=== PATIENT | male | born 1960 | race Hispanic/Latino ===

== ENCOUNTER → 2022-05-25 | Outpatient (CLI) | payer OTHER ==
[~2022-05-25] VITALS: Ht 162.6 cm; Wt 103.1 kg
[2022-05-25 12:15] VITALS: BP 142/67
[2022-05-25 12:27] LABS: BASOPHILS % (AUTO) 0.4 % (0.0-5.0); EOSINOPHILS % (AUTO) 2.5 % (0.0-8.0); HEMATOCRIT 43.2 % (42-54); LYMPHOCYTES % (AUTO) 26.7 % (21.0-51.0); MEAN CORPUSCULAR HEMOGLOBIN 30.6 pg (27.0-33.0); MEAN CORPUSCULAR HGB CONC 33.8 g/dL (32.0-36.0); MEAN CORPUSCULAR VOLUME 90.6 fL (79-99); MONOCYTES % (AUTO) 7.3 % (3.0-13.0); NEUTROPHILS % (AUTO) 62.6 % (40.0-77.0); PLATELET COUNT (AUTO) 220 K/uL (130-400); RED BLOOD CELL COUNT(AUTO) 4.77 MIL/uL (4.50-6.20); RED CELL DISTRIBUTION WIDTH 12.6 % (11.0-15.5); WHITE BLOOD COUNT (AUTO) 5.6 K/uL (4.8-10.8)
[2022-05-25 12:33] LABS: CREATININE 0.9 mg/dL (0.5-1.5)
[2022-05-25 12:38] LABS: APPEARANCE,URINE CLEAR (CLEAR); BILIRUBIN,URINE NEGATIVE (NEGATIVE); COLOR,URINE COLORLESS (YELLOW); GLUCOSE, URINE (UA) >=1000 mg/dL (NEGATIVE); KETONES,URINE NEGATIVE (NEGATIVE); LEUKOCYTE ESTERASE ,URINE NEGATIVE Leu/uL (NEGATIVE); NITRATE,URINE NEGATIVE (NEGATIVE); OCCULT BLOOD,URINE NEGATIVE (NEGATIVE); PROTEIN,URINE NEGATIVE (NEGATIVE); UROBILINOGEN,URINE 0.2 mg/dL (0.2-1.0)
[2022-05-25 12:40] LABS: RBC,URINE 0-1 /HPF (0-1); SQUAMOUS EPITHELIAL CELL,UR RARE /HPF (0-2)
[2022-05-25 12:43] LABS: INR 1.01 (0.85-1.15)
[2022-05-25 12:44] LABS: PARTIAL THROMBOPLASTIN TIME 27.7 SEC (26.3-35.5)
[2022-05-25 12:48] LABS: B-TYPE NATRIURETIC PEPTIDE 27 pg/mL (0-100)
== END | disposition home or self-care (01) ==
LOC: DAH 10:00 → EDSTATUS 11:30
PROVIDERS: ATTEND Internal Medicine Cardiovascular Disease
DX: I25.119 Atherosclerotic heart disease of native coronary artery with unspecified angina pectoris (principal); I10 Essential (primary) hypertension; I25.2 Old myocardial infarction; Z79.01 Long term (current) use of anticoagulants; Z53.8 Procedure and treatment not carried out for other reasons
CPT/HCPCS: 36415; 71045; 80048; 81001; 83880; 85025; 85610; 85730; 93005

== ENCOUNTER 2022-06-30 08:49 | Day surgery (SDC) | payer OTHER ==
[2022-06-28 13:31] LABS: BASOPHILS % (AUTO) 0.4 % (0.0-5.0); EOSINOPHILS % (AUTO) 1.8 % (0.0-8.0); HEMATOCRIT 43.4 % (42-54); LYMPHOCYTES % (AUTO) 28.2 % (21.0-51.0); MEAN CORPUSCULAR HEMOGLOBIN 29.9 pg (27.0-33.0); MEAN CORPUSCULAR HGB CONC 32.9 g/dL (32.0-36.0); MEAN CORPUSCULAR VOLUME 90.8 fL (79-99); MONOCYTES % (AUTO) 8.6 % (3.0-13.0); NEUTROPHILS % (AUTO) 60.6 % (40.0-77.0); PLATELET COUNT (AUTO) 225 K/uL (130-400); RED BLOOD CELL COUNT(AUTO) 4.78 MIL/uL (4.50-6.20); RED CELL DISTRIBUTION WIDTH 12.8 % (11.0-15.5); WHITE BLOOD COUNT (AUTO) 5.7 K/uL (4.8-10.8)
[2022-06-28 13:37] LABS: CREATININE 1.1 mg/dL (0.5-1.5); POTASSIUM 4.2 mmol/L (3.5-5.1)
[2022-06-28 13:49] LABS: APPEARANCE,URINE CLEAR (CLEAR); BILIRUBIN,URINE NEGATIVE (NEGATIVE); COLOR,URINE LIGHT-YELLOW (YELLOW); GLUCOSE, URINE (UA) >=1000 mg/dL (NEGATIVE); KETONES,URINE NEGATIVE (NEGATIVE); LEUKOCYTE ESTERASE ,URINE NEGATIVE Leu/uL (NEGATIVE); NITRATE,URINE NEGATIVE (NEGATIVE); OCCULT BLOOD,URINE NEGATIVE (NEGATIVE); PROTEIN,URINE NEGATIVE (NEGATIVE); UROBILINOGEN,URINE 0.2 mg/dL (0.2-1.0)
[2022-06-28 13:59] LABS: PROTHROMBIN TIME 10.9 SEC (9.6-11.6)
[2022-06-28 14:00] LABS: PARTIAL THROMBOPLASTIN TIME 27.6 SEC (26.3-35.5)
[2022-06-28 14:02] LABS: RBC,URINE 0-1 /HPF (0-1)
[2022-06-28 14:17] LABS: B-TYPE NATRIURETIC PEPTIDE 25 pg/mL (0-100)
[2022-06-28 14:22] VITALS: BP 137/68
[~2022-06-30] VITALS: Ht 170.2 cm; Wt 100.4 kg
[~2022-06-30 08:49] MED LIST: ATOR20TA65 PO; CARV3.12 PO; CLOP75TA32 PO; EMPA1TAB7 PO; FAMO20TA8 PO; FLUO10TA35 PO; FURO20TA4 PO; INSLAN SQ; INSU100I15 SQ; LISI5TAB21 PO; PIOG15TA66 PO
[2022-06-30 09:20] VITALS: BP 143/67
[2022-06-30] MEDS ORDERED: 0.9%NACL 1000ML 1,000 ML IV ONE (10:25)
[2022-06-30] MEDS ORDERED: IOHEXOL 350 MG/ML 100ML INFUS..BTL IV ONE (12:10)
[2022-06-30] MEDS ORDERED: LIDOCAINE HCL 400MG/20ML VIAL ONE (12:10)
[2022-06-30] MEDS ORDERED: MIDAZOLAM HCL 1 MG/ML 2ML VIAL ONE (12:10)
[2022-06-30] MEDS ORDERED: IOHEXOL-350 50ML VIAL IV ONE (12:10)
[2022-06-30] MEDS ORDERED: NITROGLYCERIN 50MG VIAL ONE (12:11)
[2022-06-30] MEDS ORDERED: FENTANYL CITRATE PF 50 MCG/1 ML 2ML VIAL ONE (12:56)
[2022-06-30] MEDS ORDERED: 0.9%NACL 1000ML 1,000 ML IV SCH (13:30)
[2022-06-30] MEDS ORDERED: GLUCAGON 1MG KIT 1 MG ML IM PRN (13:30)
[2022-06-30] MEDS ORDERED: DEXTROSE 50%-WATER 50 ML DISP.SYRIN IV PRN (13:30)
[2022-06-30] MEDS ORDERED: HYDRALAZINE 20MG/ML VIAL IV PRN (13:30)
[2022-06-30 13:50] VITALS: BP 141/73
[2022-06-30 14:05] VITALS: BP 146/81
[2022-06-30 14:20] VITALS: BP 135/76
[2022-06-30 15:20] VITALS: BP 132/72
[2022-06-30 16:20] VITALS: BP 135/81
[2022-06-30] MEDS ORDERED: INSULIN HUMULIN R 100 UNIT/ML 3ML SQ SCH (16:30)
== END 2022-06-30 16:45 | disposition home or self-care (01) ==
LOC: DAH 08:49
PROVIDERS: ATTEND Internal Medicine Cardiovascular Disease
DX: I25.119 Atherosclerotic heart disease of native coronary artery with unspecified angina pectoris (principal); I25.5 Ischemic cardiomyopathy; I25.82 Chronic total occlusion of coronary artery; I11.0 Hypertensive heart disease with heart failure; I50.32 Chronic diastolic (congestive) heart failure; E78.5 Hyperlipidemia, unspecified; E11.9 Type 2 diabetes mellitus without complications; E66.9 Obesity, unspecified; Z79.01 Long term (current) use of anticoagulants; Z79.899 Other long term (current) drug therapy; Z79.82 Long term (current) use of aspirin; Z68.38 Body mass index [BMI] 38.0-38.9, adult; Z79.4 Long term (current) use of insulin; Z82.49 Family history of ischemic heart disease and other diseases of the circulatory system; Z83.3 Family history of diabetes mellitus; Z98.890 Other specified postprocedural states; Z98.41 Cataract extraction status, right eye; Z98.42 Cataract extraction status, left eye
CPT/HCPCS: 80048; 83880; 85025; 85610; 85730; 81001; 36415; 71045; 93458; 82948 ×2; C1894 ×2; C1760; Q9965; J3010; J3490 ×2; J7030; J2250; J1644; Q9967 ×2; A4215; A4222; A4221; A4663; A4216; A4606; A4223 ×3; 99156; 99157

== ENCOUNTER → 2024-03-19 | Outpatient (CLI) | payer OTHER ==
[~2024-03-19] MED LIST changes: +IOHEXOL 350 MG/ML 100ML INFUS..BTL IV ONE; +metoPROLOL tartRATE 1 MG/ML 5ML VIAL IV ONE
--- NOTE | 2024-03-19 10:50 | HMCIMG ---
CT CARDIAC ANGIO W/CONT. CCTA REASON: ISCHEMIC CARDIOMEGALY COMPARISON: None TECHNIQUE: Images are obtained through the heart in the axial plane before and during bolus IV contrast infusion, 100 cc Omnipaque 350. 2-D and 3-D multiplanar reconstruction images were then performed. The injection had to be repeated once due to motion artifact on the first sequence, total contrast volume was 200 cc. FINDINGS: This dictation is for the noncardiac findings only. Cardiac and coronary artery findings are reported separately. Visualized portions of the lungs are clear. There is normal-appearing pulmonary interstitium. There is no hilar or mediastinal lymphadenopathy. Chest wall structures appear unremarkable. IMPRESSION: 1. Unremarkable noncardiac portions of CT cardiac angiography.
== END | disposition home or self-care (01) ==
LOC: RAH 07:27
PROVIDERS: ATTEND Internal Medicine Cardiovascular Disease
DX: I25.5 Ischemic cardiomyopathy (principal)
CPT/HCPCS: 75574; J3490; Q9967

== ENCOUNTER 2024-06-20 06:49 | Day surgery (SDC) | payer OTHER ==
--- NOTE | 2024-06-18 08:54 | EKG ---
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 : 1960 Requested By: SHARLENE TURNER Order Number: [id number] Reading MD: Gertrude Shook Measurements Intervals [place] Rate: 73 P: -2 UT: 142 QRS: -23 QRSD: 98 T: 107 QT: 404 QTc: 445 Interpretive Statements Normal sinus rhythm Septal infarct , age undetermined T wave abnormality, consider lateral ischemia Compared to ECG 07/27/2022 23:15:01 T-wave abnormality now present Sinus tachycardia no longer present Ventricular premature complex(es) no longer present Short UT interval no longer present ST (T wave) deviation no longer present Myocardial infarct finding still present Possible ischemia still present Electronically Signed On 06-19-2024 13:19:15 CDT by Gertrude Shook Please click the below link to view image of tracing.
[2024-06-18 09:07] LABS: BASOPHILS # (AUTO) 0.02 K/uL (0.00-0.20); BASOPHILS % (AUTO) 0.4 % (0.0-5.0); EOSINOPHILS # (AUTO) 0.15 K/uL (0.00-0.70); EOSINOPHILS % (AUTO) 2.7 % (0.0-8.0); HEMATOCRIT 47.2 % (42-54); IMMATURE GRANULOCYTE ABSOLUTE 0.02 K/uL (0-1); LYMPHOCYTES # (AUTO) 1.4 K/uL (1.0-4.8); LYMPHOCYTES % (AUTO) 25.2 % (21.0-51.0); MEAN CORPUSCULAR HGB CONC 34.1 g/dL (32.0-36.0); MEAN CORPUSCULAR VOLUME 88.1 fL (79-99); MONOCYTES # (AUTO) 0.4 K/uL (0.1-1.0); MONOCYTES % (AUTO) 7.4 % (3.0-13.0); NEUTROPHILS # (AUTO) 3.6 K/uL (1.8-7.7); NEUTROPHILS % (AUTO) 63.9 % (40.0-77.0); PLATELET COUNT (AUTO) 223 K/uL (130-400); RED BLOOD CELL COUNT(AUTO) 5.36 MIL/uL (4.50-6.20); RED CELL DISTRIBUTION WIDTH 12.3 % (11.0-15.5); WHITE BLOOD COUNT (AUTO) 5.6 K/uL (4.8-10.8)
[2024-06-18 09:17] LABS: INR 1.04 (0.85-1.15)
[2024-06-18 09:18] LABS: PARTIAL THROMBOPLASTIN TIME 26.3 SEC (26.3-35.5)
[2024-06-18 10:36] VITALS: BP 113/66; PULSE 78; RESP 18; TEMP 98.1
--- NOTE | 2024-06-18 11:44 | HMCIMG ---
CHEST 1VW HISTORY: Preop COMPARISON: 08/03/2022 FINDINGS: A frontal projection of the chest was obtained. No acute pulmonary infiltrates is seen. Poststernotomy changes are seen. The heart is enlarged. Degenerative changes of the thoracolumbar spine are present. No evidence of aortic calcification is seen. IMPRESSION: 1. No acute pulmonary infiltrate is seen.
[2024-06-20] VITALS (12 sets, daily range): BP systolic 113–140; BP diastolic 61–76; PULSE 78–88; RESP 11–18; TEMP 97.3–97.6
[~2024-06-20] VITALS: Ht 165.1 cm; Wt 99.3 kg
[~2024-06-20 06:49] MED LIST changes: +ASPI-1443 PO; -ATOR20TA65 PO; +ATOR40TA71 PO; -CARV3.12 PO; +DAPA1TAB5 PO; -EMPA1TAB7 PO; -FLUO10TA35 PO; -IOHEXOL 350 MG/ML 100ML INFUS..BTL IV ONE; +ISOS30TA92 PO; -LISI5TAB21 PO; +METO25 PO; -PIOG15TA66 PO; +PREG75CA76 PO; -metoPROLOL tartRATE 1 MG/ML 5ML VIAL IV ONE
[2024-06-20] MEDS ORDERED: IOHEXOL 350 MG/ML 100ML INFUS..BTL IV ONE (09:49)
[2024-06-20] MEDS ORDERED: IOHEXOL-350 50ML VIAL IV ONE (09:49)
[2024-06-20] MEDS ORDERED: LIDOCAINE HCL 1% 20 ML VIAL ONE ×2 (09:49→10:51)
[2024-06-20] MEDS ORDERED: NITROGLYCERIN 50MG VIAL ONE (09:50)
[2024-06-20] MEDS ORDERED: HEParin 10,000 UNIT/10ML (1,000 UNIT/ML) VIAL ONE (09:50)
[2024-06-20] MEDS ORDERED: HEParin-NS 1,000 UNIT/500 ML 1,000 ML IV ONE (09:50)
[2024-06-20] MEDS ORDERED: BIVALIRUDIN 250 MG/VIAL IV ONE (09:51)
[2024-06-20] MEDS ORDERED: MIDAZOLAM HCL 1 MG/ML 2ML VIAL ONE ×2 (10:08→10:42)
[2024-06-20] MEDS ORDERED: FENTanyl CITRate PF 50 MCG/1 ML 2ML VIAL ONE (10:08)
[2024-06-20] MEDS ORDERED: ATROPINE 1MG SYG IVP ONE (11:16)
[2024-06-20] MEDS ORDERED: cloPIDOgrel 300MG TAB ONE (11:23)
[2024-06-20] MEDS ORDERED: ASPIRIN 81 MG EC TAB ONE (11:23)
[2024-06-20] MEDS ORDERED: EPINEPHrine PF 1MG (1:1,000) 1 MG/ML AMP ONE (11:42)
[2024-06-20] MEDS ORDERED: HEParin-NS 1,000 UNIT/500 ML 500 ML IV ONE (11:46)
[2024-06-20] MEDS ORDERED: DOPamine HCL 400 MG/D5%-WATER 0 ML IV ONE (11:55)
--- NOTE | 2024-06-20 12:48 | PRN ---
PROCEDURES: 1. Right common femoral arterial sheath placement. 2. Selective coronary angiogram. 3. Left heart catheterization. 4. Angioplasty to mid RCA into RV marginal with the use of a 2.5 mm x 20 mm balloon to nominal pressure 5. Failed stent placement delivery to mid RCA into RV marginal branch with stent coming off delivery system remaining in proximal mid RCA 6. Angioplasty to proximal mid RCA with a 2 mm balloon and a 3 mm balloon with a attempts at reducing profile of abandoned stent INDICATION: Ischemic cardiomyopathy DESCRIPTION OF PROCEDURE: The patient was brought to the catheterization suite and prepped and draped in sterile fashion. IV was started, and not already in place and both groins were exposed for arterial access. 1% lidocaine was used for local anesthesia and then a micropuncture kit was used to gain access once free-flowing blood was seen, modified Seldinger technique was utilized to place a 6 [place] sheath into the right common femoral artery. Next, preformed JL4 and JR 4 catheters were used to selectively engage the [place] coronary vessels and multiple hand contrast injections were performed in different views to define the coronary anatomy. Next the JR4 system was then used to selectively engage 2 saphenous vein grafts as well as to direct a Glidewire into the distal subclavian and brachial artery under fluoroscopic guidance. Next an IMT catheter was then used to selectively engage the left internal mammary artery and multiple hand contrast injections were performed to define this anatomy as well. Next images were reviewed with findings as described below. FINDINGS: The left main artery bifurcates in the LAD and left circumflex and is free of disease. The left anterior descending artery in its ostial and proximal segment has a stent noted which is 100% occluded. There is a saphenous vein graft coming off the aorta which anastomosis to the mid LAD and is noted to be patent. Velarde-diagonal branch 2. Is noted to be patent. The [place] left circumflex artery is patent giving rise to obtuse marginal branch 1. Which has an 85-90% stenosis noted in its proximal segment. The right coronary artery has an area of occlusion in its distal segment and the saphenous vein graft to the RCA is occluded off the aorta. The mid RCA has sequential lesions of 75 and 85% before 100% occlusion distally. RV marginal branch in its ostial and proximal segment has 85-90% stenosis. INTERVENTIONAL REPORT: After images were reviewed it was felt attempts could be made at intervention to [place] RCA and RV marginal branch and a choice PT extra-support wire was placed in the distal RV marginal branch under fluoroscopic guidance. And a GuideLiner was used for support to deliver a 2.5 mm by 20 mm balloon to the RV marginal into the mid RCA and deployed. Next attempts were made to pass a stent into this region with GuideLiner support but was unsuccessful and as we are withdrawing stent it appeared that a portion of the proximal segment of stent attached are was snared by a eccentric presumably a calcified plaque thereby removing the under deployed stent off the delivery system remaining in the mid RCA. I then wired initially with a whisper wire and eventually delivered a 2-0 balloon to try and flattened stent and then I went in with a 3-0 balloon into the same thing. We then tried to deliver a 3.5 mm x 26 mm stent but was kicked out. And then we wired system and eventually put an iron man into the distal RCA under fluoroscopic guidance. Attempts were made once more to cross a 3 5 mm stent to crush balloon but was unsuccessful and secondary to amount of contrast and radiation exposure was felt test should be terminated. Contrast injections revealed still ABDIAS 3 flow and remaining segments. A Mynx device was used for closure of arteriotomy site. RECOMMENDATIONS: Continued medical management. Continue dual antiplatelet therapy Discharge home later today No heavy lifting 5 lb or greater for 3 days Consider repeat attempts at revascularization of RCA. SHARLENE TURNER MD June 20, 2024 12:48
[2024-06-20] MEDS ORDERED: NITROGLYCERIN 0.4 MG SL TAB SL PRN (13:00)
[2024-06-20] MEDS ORDERED: DEXTROSE 50%-WATER 50 ML DISP.SYRIN IV PRN (13:00)
[2024-06-20] MEDS ORDERED: GLUCAGON 1MG KIT 1 MG ML IM PRN (13:00)
[2024-06-20] MEDS: 0.9%NACL 1000ML 1,000 ML IV SCH (13:28)
[2024-06-20] MEDS ORDERED: INSULIN humuLIN R 100 UNIT/ML 3ML SQ SCH (16:30)
--- NOTE | 2024-06-20 16:30 | NUR ---
HANDOFF REPORT RECEIVED REPORT FROM MISSAEL DARBY AT BEDSIDE USING SBAR. PATIENT AAOX3, VITAL SIGNS STABLE. DRESSING TO RIGHT GROIN DRY/INTACT. SPOUSE AT BEDSIDE. NO HEMATOMA OR BLEEDING NOTED.
--- NOTE | 2024-06-20 17:34 | NUR ---
PATIENT DISCHARGED FROM FACILITY VIA WHEELCHAIR BY JUSTA CHAN AND ASSISTED INTO PRIVATE VEHICLE DRIVEN BY SPOUSE
== END 2024-06-20 17:34 | disposition home or self-care (01) ==
LOC: DAH 06:49
PROVIDERS: ATTEND Internal Medicine Cardiovascular Disease
DX: I25.5 Ischemic cardiomyopathy (principal); I25.118 Atherosclerotic heart disease of native coronary artery with other forms of angina pectoris; T82.858A Stenosis of other vascular prosthetic devices, implants and grafts, initial encounter; I50.42 Chronic combined systolic (congestive) and diastolic (congestive) heart failure; T82.855A Stenosis of coronary artery stent, initial encounter; I11.0 Hypertensive heart disease with heart failure; E78.5 Hyperlipidemia, unspecified; E11.9 Type 2 diabetes mellitus without complications; E66.9 Obesity, unspecified; I25.2 Old myocardial infarction; Z98.42 Cataract extraction status, left eye; Z98.41 Cataract extraction status, right eye; Y71.8 Miscellaneous cardiovascular devices associated with adverse incidents, not elsewhere classified; Y71.2 Prosthetic and other implants, materials and accessory cardiovascular devices associated with adverse incidents; Z89.422 Acquired absence of other left toe(s); Z68.38 Body mass index [BMI] 38.0-38.9, adult; Z79.4 Long term (current) use of insulin; Z79.82 Long term (current) use of aspirin; Z79.899 Other long term (current) drug therapy
CPT/HCPCS: 80048; 85025; 85610; 85730; 36415; 71045; 93005; 92921; 82948; 93455; C9600; C1769 ×6; C1887 ×3; C1894 ×2; C1725 ×3; C1874; C1760; J3010; J2250; J1644 ×2; J0583; Q9967; A4215; A4222; A4221; A4663; A4216; A4606; Q9965 ×2; A4223 ×3; 92920; 96360; 99156; 99157; J0171; J0461; J1265; J3490

== ENCOUNTER 2024-09-09 06:34 | Day surgery (SDC) | payer OTHER ==
[2024-09-05 10:41] LABS: IMMATURE GRANULOCYTE ABSOLUTE 0.01 K/uL (0-1); NUCLEATED RED BLOOD CELLS 0.0 % (0.0-0.19); PLATELET COUNT (AUTO) 175 K/uL (130-400); RED BLOOD CELL COUNT(AUTO) 4.93 MIL/uL (4.50-6.20); RED CELL DISTRIBUTION WIDTH 12.7 % (11.0-15.5); WHITE BLOOD COUNT (AUTO) 5.0 K/uL (4.8-10.8)
[2024-09-05 10:48] LABS: CREATININE 0.8 mg/dL (0.5-1.3); GLOMERULAR FILTR. RATE CALC 98.0 mL/min (>90); GLUCOSE,RANDOM 244.0 mg/dL (70-105); SODIUM SERUM 140.0 mmol/L (136-145); UREA NITROGEN, BLOOD 23.0 mg/dL (7-18)
[2024-09-05 10:53] VITALS: BP 110/54; PULSE 76; RESP 15; TEMP 97.5
[2024-09-05 10:55] LABS: INR 1.04 (0.85-1.15)
--- NOTE | 2024-09-05 12:44 | EKG ---
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 : 1960 Requested By: SHARLENE TURNER Order Number: [id number] Reading MD: Gertrude Shook Measurements Intervals [place] Rate: 75 P: 37 CO: 146 QRS: -21 QRSD: 111 T: 121 QT: 395 QTc: 443 Interpretive Statements Sinus rhythm Low voltage, precordial leads Anteroseptal infarct, old Abnormal T, consider ischemia, lateral leads Compared to ECG 06/18/2024 08:51:16 Low QRS voltage now present Myocardial infarct finding still present T-wave abnormality still present Possible ischemia still present Electronically Signed On 09-05-2024 13:18:54 CDT by Gertrude Shook Please click the below link to view image of tracing.
--- NOTE | 2024-09-05 21:35 | HMCIMG ---
EXAM: CR Chest, 1 View. CLINICAL HISTORY: PRE OP COMPARISON: Study dated 06/18. FINDINGS: LUNGS: Prominent bronchovascular markings in both lung resendez. The lungs show no other acute findings. Sternotomy sutures with post-CABG status. Focal eventration of the right hemidiaphragm. PLEURAL SPACES: No pleural effusion or pneumothorax. MEDIASTINUM: Cardiac size and mediastinal contours are within normal limits. BONES: No acute osseous abnormality. IMPRESSION: 1. Prominent bronchovascular markings in both lung resendez. The lungs show no other acute findings. 2. Sternotomy sutures with post-CABG status. 3. Focal eventration of the right hemidiaphragm. /[place]
--- NOTE | 2024-09-08 09:00 | NUR ---
RE: CXR REPORTED CXR RESULTS TO [facility]. NO NEW ORDERS RECEIVED.
[2024-09-09] VITALS (13 sets, daily range): BP systolic 105–160; BP diastolic 54–84; PULSE 75–93; RESP 10–17; TEMP 97.4–97.7
[~2024-09-09] VITALS: Ht 162.6 cm; Wt 98.5 kg
[~2024-09-09 06:34] MED LIST changes: -DAPA1TAB5 PO; +EMPA1TAB7 PO; +METO-408 PO; -METO25 PO; +TIRZ7.5P SQ
[2024-09-09] MEDS: 0.9%NACL 1000ML 1,000 ML IV SCH (07:38)
[2024-09-09] MEDS ORDERED: LIDOCAINE HCL 400MG/20ML VIAL ONE ×2 (08:19→08:22)
[2024-09-09] MEDS ORDERED: IOHEXOL 350 MG/ML 100ML INFUS..BTL IV ONE (08:19)
[2024-09-09] MEDS ORDERED: HEParin-NS 1,000 UNIT/500 ML 1,000 ML IV ONE (08:20)
[2024-09-09] MEDS ORDERED: NITROGLYCERIN 50MG VIAL ONE (08:20)
[2024-09-09] MEDS ORDERED: HEParin-NS 1,000 UNIT/500 ML 500 ML IV ONE (08:21)
[2024-09-09] MEDS ORDERED: MIDAZOLAM HCL 1 MG/ML 2ML VIAL ONE (08:29)
[2024-09-09] MEDS ORDERED: IOHEXOL-350 50ML VIAL IV ONE (09:23)
--- NOTE | 2024-09-09 09:52 | PRN ---
Left Heart Cath-Daniel PROCEDURE: 1. Right common femoral arterial sheath placement. 2. Selective coronary angiogram. 3. Left heart catheterization. 4. Left ventriculogram. 5. Conscious sedation 6. Saphenous vein graft cannulation and left internal mammary artery cannulation INDICATIONS: Ischemic cardiomyopathy DESCRIPTION OF PROCEDURE: The patient was brought to the catheterization suite and prepped and draped in sterile fashion. An IV was started, if not already in place and both groins were exposed for arterial access. 1% lidocaine was used for local anesthesia and then a micropuncture kit was used to gain access and once free-flowing blood was seen, modified Seldinger technique was utilized to place a 6 [place] sheath into the right common femoral artery. Next preformed JR4 catheter was then used to selectively engage the [place] right coronary artery saphenous vein graft and left internal mammary artery. Contrast injections were performed to define the anatomy. Next a 6 [place] angled pigtail was used across aortic valve pressure measurements were obtained and then a left ventriculogram was done in the 30 BAGLEY position. Pullback method was then performed. The left main artery was not engaged as it has been engaged on June 2024 via coronary angiography. At end of case right common femoral arterial sheath was removed and closure of arteriotomy site was performed with a Mynx closure system. No complications occurred. FINDINGS: The right coronary artery with the un deployed stent in its mid section is still present with ABDIAS 3 flow noted. There is a distal occlusion of the right coronary artery at 100%. RV marginal has stenosis of 70%. There is an occluded saphenous vein graft to RCA which was not engaged. The saphenous vein graft to the LAD is noted to be patent with stenosis at the or just above the anastomosis site of the proximally 40-60%. Apical LAD has a 70-75% stenosis noted in a 2 mm vessel. Velarde-diagonal branch two-vessel is noted to be patent. Ejection fraction is at 25-30% with global hypokinesis noted. There was no evidence of aortic stenosis or mitral regurgitation. RECOMMENDATIONS: RECOMMEND EVALUATION WITH DR. RUIZ AN OUTPATIENT TO CONSIDER AICD WE WILL INITIATE VALSARTAN AT 80 MG DAILY CONTINUE WITH BETA BLOCKADE AND ANTIPLATELET THERAPY CONTINUE WITH STATIN. SHARLENE TURNER MD Sep 09, 2024 09:52
[2024-09-09] MEDS ORDERED: GLUCAGON 1MG KIT 1 MG ML IM PRN (10:00)
[2024-09-09] MEDS ORDERED: 0.9%NACL 1000ML 1,000 ML IV SCH (10:00)
[2024-09-09] MEDS ORDERED: DEXTROSE 50%-WATER 50 ML DISP.SYRIN IV PRN (10:00)
--- NOTE | 2024-09-09 11:15 | NUR ---
URINARY: PATIENT VOIDED QS YELLOW COLOR URINE WITHOUT DIFFICULTY.
== END 2024-09-09 15:20 ==
LOC: DAH 06:34
PROVIDERS: ATTEND Internal Medicine Cardiovascular Disease
DX: I25.5 Ischemic cardiomyopathy (principal); R94.39 Abnormal result of other cardiovascular function study; I25.118 Atherosclerotic heart disease of native coronary artery with other forms of angina pectoris; I25.708 Atherosclerosis of coronary artery bypass graft(s), unspecified, with other forms of angina pectoris; I11.0 Hypertensive heart disease with heart failure; I50.42 Chronic combined systolic (congestive) and diastolic (congestive) heart failure; R06.09 Other forms of dyspnea; E11.9 Type 2 diabetes mellitus without complications; E78.5 Hyperlipidemia, unspecified; E66.9 Obesity, unspecified; Z98.42 Cataract extraction status, left eye; Z98.41 Cataract extraction status, right eye; Z89.422 Acquired absence of other left toe(s); Z68.38 Body mass index [BMI] 38.0-38.9, adult; Z79.4 Long term (current) use of insulin; Z79.01 Long term (current) use of anticoagulants; Z95.5 Presence of coronary angioplasty implant and graft; Z79.82 Long term (current) use of aspirin; Z79.899 Other long term (current) drug therapy
CPT/HCPCS: 80048; 85025; 85610; 85730; 36415; 71045; 93005; 93459; 82948 ×2; 99156; 99157; C1894 ×2; C1760; J3010; J3490 ×3; J7030; J2250; J1644 ×2; Q9967; A4215; A4222; A4221; A4663; A4216; A4606; Q9965; A4223 ×3